=== PATIENT | male | born 1990 | race Caucasian/White ===

== ENCOUNTER 2019-03-04 04:04 | Emergency (ER) | payer OTHER ==
[2019-03-04] MEDS ORDERED: Bacitracin Zinc Ointment 30 gm TUBE ONE (04:19)
== END 2019-03-04 04:20 | disposition home or self-care (01) ==
LOC: SCSER 04:04
DX: S00.81XA Abrasion of other part of head, initial encounter (principal); E03.9 Hypothyroidism, unspecified; Z79.899 Other long term (current) drug therapy; W22.8XXA Striking against or struck by other objects, initial encounter
CPT/HCPCS: 99282

== ENCOUNTER 2019-05-12 08:45 | Outpatient (CLI) | payer OTHER ==
--- NOTE | 2019-05-12 11:41 | MRI ---
LEFT SHOULDER MRI WITHOUT IV CONTRAST: Date: 05/12/19 HISTORY: Traumatic tear left rotator cuff, injury playing volleyball. TECHNIQUE: Multiplanar, multisequence MRI examination of the left shoulder is performed. The AC joint region seb ears unremarkable. No significant subacromial or subdeltoid bursal fluid. Rotator cuff tendons appear intact. Rotator cuff muscles show normal signal and volume. Normal appearing labrum. No acute osteoc hondral defect or abnormal marrow signal. IMPRESSION: Unremarkable left shoulder MRI. No evidence for significant internal derangement. POS: [facility]
== END 2019-05-12 08:46 | disposition home or self-care (01) ==
LOC: SCSMRI 08:45
PROVIDERS: ATTEND Orthopaedic Surgery
DX: S46.012A Strain of muscle(s) and tendon(s) of the rotator cuff of left shoulder, initial encounter (principal)

== ENCOUNTER 2020-05-06 07:09 | Outpatient (CLI) | payer OTHER ==
[2020-05-07 12:09] LABS: SARS-CoV-2 MS2 Positive; SARS-CoV-2 N Gene Negative; SARS-CoV-2 S Gene Negative; SARS-CoV-2 by NAA Not Detected (NotDetected); SARS-CoV-2 orf1ab Negative
== END 2020-05-06 07:10 | disposition home or self-care (01) ==
LOC: LABBT 07:09
PROVIDERS: ATTEND Specialist
DX: J35.3 Hypertrophy of tonsils with hypertrophy of adenoids (principal); J34.3 Hypertrophy of nasal turbinates; G47.30 Sleep apnea, unspecified; J30.9 Allergic rhinitis, unspecified; Z20.828 Contact with and (suspected) exposure to other viral communicable diseases
CPT/HCPCS: 87635; U0003

== ENCOUNTER 2020-05-09 06:40 | Day surgery (SDC) | payer OTHER ==
[2020-05-08 11:22] VITALS: BMI 30.8
[2020-05-09] MEDS ORDERED: AFRIN NASAL MIST 15 ML BOT ONE ×2 (07:15→08:33)
[2020-05-09] MEDS ORDERED: HYDROmorphone 0.5 MG/0.5 ML SYRINGE ONE (07:36)
[2020-05-09] MEDS ORDERED: Fentanyl 100 MCG/2 ML VIAL ONE ×2 (07:36→10:04)
[2020-05-09] MEDS ORDERED: Midazolam HCl 2 mg/2 ml Vial ONE (07:36)
[2020-05-09] MEDS ORDERED: Lidocaine 1% w/Epinephrine 1:100K 20 ML VIAL ONE (08:33)
[2020-05-09] MEDS ORDERED: Ferric Subsulfate (ASTRINGYN) 8 GM VIAL ONE (09:21)
--- NOTE | 2020-05-09 10:46 | OP ---
DATE OF PROCEDURE: 05/09/2020 PREOPERATIVE DIAGNOSES: 1. Sleep apnea. 2. Obstructive chronic tonsillitis. 3. Obstructive tonsillar hypertrophy. 4. Obstructive uvular hypertrophy. 5. Hypertrophic inferior turbinates. POSTOPERATIVE DIAGNOSES: 1. Sleep apnea. 2. Obstructive chronic tonsillitis. 3. Obstructive tonsillar hypertrophy. 4. Obstructive uvular hypertrophy. 5. Hypertrophic inferior turbinates. PROCEDURES PERFORMED: 1. Tonsillectomy over 12 years of age. 2. Uvulectomy. 3. Bilateral nasal endoscopy with submucosal resection of inferior turbinates. DESCRIPTION OF PROCEDURE: TONSILLECTOMY OVER 12 YEARS OF AGE: After consent was obtained, the patient was identified, brought to the operating room, and placed on the operating table in the supine position. General endotracheal anesthesia and intravenous access was obtained and we proceeded with positioning the patient for oropharyngeal surgery. Oropharyngeal exposure was obtained with a Billie-Len mouth gag after a head drape was placed and secured with a towel clip. The Billie-Len mouth gag was then suspended from the [place] tray and palatal elevation was achieved with a red rubber catheter. The right tonsil was addressed first. We used a curved Allis to grasp the tonsil and retract it medially as an anterior pillar incision was made with a #12 blade. The retrotonsillar fascial plane was then established and blunt dissection was performed with the suction cautery. Blood vessels were anticipated, identified, and cauterized as they were encountered. Ultimately, dissection was carried to the posterior tonsillar pillar mucosa which was incised hemostatically, as well as the base of tongue connection. The tonsil was then passed off as a specimen and bleeding points within the tonsillar bed were cauterized under direct visualization. We subsequently turned our attention to the contralateral side, where using a similar technique, a near identical procedure was performed. Again, the tonsil was grasped and retracted medially with a curved Allis as an anterior pillar incision was made with a #12 blade. The retrotonsillar fascial plane was established and while the anterior pillar was retracted medially, the hemostatic blunt dissection of the tonsil with a suction cautery was performed with blood vessels anticipated, identified, and cauterized as they were encountered. Again, dissection continued to the base of tongue and posterior tonsillar pillar mucosa which was incised in a hemostatic fashion. The tonsillar beds were then carefully inspected and bleeding points were identified and cauterized with a suction cautery. After this portion of the procedure, hemostasis was completely obtained. The patient's oral cavity was copiously irrigated with iced saline and subsequently suctioned. We then used the red rubber catheter to suction the gastric contents and the patient was subsequently aroused, awakened, and extubated without difficulty and transported to the recovery room in stable condition. There were no complications. UVULECTOMY: The uvula was then grasped and retracted inferiorly as vertical incisions were made on either side of the insertion of the uvula into the soft palate. A crescentic portion of soft palate was then removed on each side of the relaxing incision, and the uvula was transected at the site where it normally would have interfaced with the soft palate. The anterior and posterior aspect of the wound was then reapproximated with interrupted chromic sutures. The patient was then awakened, extubated, and transferred to recovery where patient remained in stable condition prior to discharge home. BILATERAL NASAL ENDOSCOPY WITH SUBMUCOSAL RESECTION OF INFERIOR TURBINATES: After consent was obtained, the patient was identified, brought to the operating room, and placed on the operating room table in the supine position. Consent was obtained, notifying the patient of the possibility of additional infections, bleeding, brain injury, and eye/orbital injury. The patient was placed on the operating room table, and general endotracheal anesthesia and intravenous access was obtained. The patient was then positioned, prepped and draped for endoscopic sinus surgery. Nasal preparation included trimming nasal vestibular hairs and spraying in topical Afrin. We then placed Afrin topical solution on nasal pledgets and strategically located them intranasally. The perinasal mucosa was injected with 1% lidocaine with 1:100,000 epinephrine in the submucoperichondrial plane of the septum, lateral nasal wall, and anterior to the uncinate. The patient was then prepped and draped in a sterile fashion and positioned for endoscopic sinus surgery. With the 0-degree endoscope, the patient underwent systematic nasal endoscopy. There were no suspicious internasal masses or lesions identified. We then focused our attention to the osteomeatal complex region under the middle turbinate. The inferior turbinates were visualized with a 0 degree endoscope and outfractured with a Karl elevator. The inferior medial aspect was cauterized with the electrocautery. Hemostasis was obtained . After adequate airway was established, we turned our attention to the contralateral side and used a similar procedure. Again, a Karl elevator was used to outfracture inferior turbinates under endoscopic visualization. With a suction cautery, the free inferior medial aspect was cauterized under direct visualization along the length of the inferior turbinate. At this point, we then turned our attention to the contralateral side and proceeded with endoscopic sinus surgery. At the completion of the case, Rice keel splints were placed in the ethmoid cavities after the ethmoidectomy. There were no complications. The patient tolerated the procedure well and was discharged to the recovery room in stable condition prior to return to the preoperative day stay with ultimate discharge home. Prescriptions for pain medication and antibiotics were provided. The patient received intramuscular Depo-Medrol during the case. Job ID: [id number]
[2020-05-09] MEDS ORDERED: Hydrocodone-Acetamin 15 ML UDCUP ONE (11:25)
[2020-05-09] MEDS ORDERED: Dexamethasone 20 MG/5 ML VIAL ONE (11:53)
[2020-05-09] MEDS ORDERED: Ondansetron PF 4 MG/2 ML Vial ONE (11:53)
[2020-05-09] MEDS ORDERED: Lidocaine 1% PF 5 ML VIAL ONE (11:53)
[2020-05-09] MEDS ORDERED: PROPOFOL 200 MG/20 ML VIAL ONE (11:53)
== END 2020-05-09 12:15 | disposition home or self-care (01) ==
LOC: SDC 06:40
PROVIDERS: ATTEND Specialist
PROC: 09BL8ZZ Excision of Nasal Turbinate, Via Natural or Artificial Opening Endoscopic (ICD-10-PCS; principal; 2020-05-09)
PROC: 0CTPXZZ Resection of Tonsils, External Approach (ICD-10-PCS; 2020-05-09)
PROC: 0CBNXZZ Excision of Uvula, External Approach (ICD-10-PCS; 2020-05-09)
PROC: 0CTQXZZ Resection of Adenoids, External Approach (ICD-10-PCS; 2020-05-09)
DX: J35.01 Chronic tonsillitis (principal); J35.2 Hypertrophy of adenoids; J34.3 Hypertrophy of nasal turbinates; G47.30 Sleep apnea, unspecified; K13.79 Other lesions of oral mucosa; J30.9 Allergic rhinitis, unspecified; I10 Essential (primary) hypertension; Z79.899 Other long term (current) drug therapy; Z88.7 Allergy status to serum and vaccine
CPT/HCPCS: 88304; J1100; J1170; J2250; J2405; J2704; J3010

== ENCOUNTER 2021-02-20 | Outpatient (CLI) | payer OTHER | END 2021-02-20 14:00 | disposition home or self-care (01) ==

== ENCOUNTER 2023-07-28 16:41 | Outpatient (CLI) | payer OTHER | END 2023-07-28 16:42 | disposition home or self-care (01) | LOC: SCSRAD 16:41 | PROVIDERS: ATTEND Physician Assistant | DX: S49.92XA Unspecified injury of left shoulder and upper arm, initial encounter (principal) ==